=== PATIENT | female | born 1970 | race Caucasian/White ===

== ENCOUNTER 2021-08-25 01:18 | Emergency (ER) | payer OTHER ==
[~2021-08-25] VITALS: Ht 157.5 cm; Wt 46.7 kg
[~2021-08-25 01:18] MED LIST: INTESTINEX1 CAP PO; ZANTAC150 MG PO
[2021-08-25] MEDS ORDERED: INTESTINEX680 M1 PO (03:53)
[2021-08-25] MEDS ORDERED: AMOX1TAB5 PO (03:53)
== END 2021-08-25 04:01 | disposition home or self-care (01) ==
LOC: ER 01:18
DX: S01.82XA Laceration with foreign body of other part of head, initial encounter (principal); V00.141A Fall from scooter (nonmotorized), initial encounter; Y93.I9 Activity, other involving external motion; Y92.39 Other specified sports and athletic area as the place of occurrence of the external cause